=== PATIENT | male | born 1970 | race Hispanic/Latino ===

== ENCOUNTER 2017-11-16 00:10 | Emergency (ER) | payer OTHER ==
[2017-11-16] MEDS ORDERED: KETOROLAC TROMETHAMINE 60 MG/2 ML VIAL ONE (01:33)
[2017-11-16] MEDS ORDERED: DEXAMETHASONE SOD PHOSPHATE 10MG/ML 1ML VIAL ONE (01:33)
== END 2017-11-16 02:14 | disposition home or self-care (01) ==
LOC: EDH 00:10
DX: J02.9 Acute pharyngitis, unspecified (principal); I10 Essential (primary) hypertension; E11.9 Type 2 diabetes mellitus without complications; I73.9 Peripheral vascular disease, unspecified; Z79.4 Long term (current) use of insulin; Z87.891 Personal history of nicotine dependence
CPT/HCPCS: 96372 ×2; 99284; J1100; J1885

== ENCOUNTER 2018-02-08 05:09 | Emergency (ER) | payer OTHER ==
[2018-02-08] MEDS ORDERED: ONDANSETRON ODT 4 MG TAB ONE (05:40)
[2018-02-08] MEDS ORDERED: ACETAMINOPHEN-CODEINE ELIXIR 5 ML UDCUP ONE (05:41)
[2018-02-08 05:50] LABS: BASOPHILS % (AUTO) 0.5 % (0.0-5.0); EOSINOPHILS % (AUTO) 0.6 % (0.0-8.0); MEAN CORPUSCULAR HEMOGLOBIN 27.7 pg (27.0-33.0); MEAN CORPUSCULAR HGB CONC 33.7 g/dL (32.0-36.0); MEAN CORPUSCULAR VOLUME 82.2 fL (79-99); MONOCYTES % (AUTO) 10.4 % (3.0-13.0); NEUTROPHILS % (AUTO) 72.5 % (40.0-77.0); PLATELET COUNT (AUTO) 241 K/uL (130-400); RED BLOOD CELL COUNT(AUTO) 5.23 MIL/uL (4.50-6.20); RED CELL DISTRIBUTION WIDTH 12.9 % (11.0-15.5); WHITE BLOOD COUNT (AUTO) 9.9 K/uL (4.8-10.8)
[2018-02-08] MEDS ORDERED: MAG HYDROX/AL HYDROX/SIMETH ES 30 ML SUSP UDCUP ONE (05:56)
[2018-02-08] MEDS ORDERED: LIDOCAINE HCL 2% VISCOUS 15 ML UDCUP ONE (05:56)
[2018-02-08 06:02] LABS: CREATININE 0.8 mg/dL (0.5-1.5); POTASSIUM 3.9 mmol/L (3.5-5.1)
[2018-02-08 06:07] LABS: ALBUMIN 3.2 g/dL (3.5-5.0); BILIRUBIN,TOTAL 0.4 mg/dL (0.2-1.0); TOTAL PROTEIN, SERUM 8.2 g/dL (6.0-8.3)
== END 2018-02-08 06:58 | disposition home or self-care (01) ==
LOC: EDH 05:09
DX: K52.9 Noninfective gastroenteritis and colitis, unspecified (principal); E11.9 Type 2 diabetes mellitus without complications; I10 Essential (primary) hypertension; E78.5 Hyperlipidemia, unspecified; Z79.4 Long term (current) use of insulin
CPT/HCPCS: 36415; 80053; 83690; 84484; 85025; 93005

== ENCOUNTER → 2023-01-01 | Outpatient (CLI) | payer OTHER, MEDICAID | END | disposition home or self-care (01) | LOC: RAH 15:27 | PROVIDERS: ATTEND Family Medicine | DX: I45.19 Other right bundle-branch block (principal); I10 Essential (primary) hypertension | CPT/HCPCS: 93306 ==

== ENCOUNTER 2023-07-13 10:21 | Emergency (ER) | payer OTHER, MEDICAID ==
[~2023-07-13] VITALS: Ht 175.3 cm; Wt 127.0 kg
[2023-07-13 12:14] VITALS: BP 136/84; PULSE 79; RESP 18; O2SAT 97
[2023-07-13] MEDS ORDERED: DIPH,PERTUSS(ACELL),TET VAC/PF 0.5 ML VIAL IM ONE (12:30)
[2023-07-13] MEDS ORDERED: KETOROLAC 30MG VIAL (30MG/ML) IM ONE (12:30)
[2023-07-13] MEDS ORDERED: DICL20GE TP (12:32)
[2023-07-13] MEDS ORDERED: M-SA237L TP (12:33)
== END 2023-07-13 13:22 | disposition home or self-care (01) ==
LOC: EDH 10:21
DX: S80.211A Abrasion, right knee, initial encounter (principal); M25.561 Pain in right knee; E11.9 Type 2 diabetes mellitus without complications; I10 Essential (primary) hypertension; E78.00 Pure hypercholesterolemia, unspecified; Z90.49 Acquired absence of other specified parts of digestive tract; W18.39XA Other fall on same level, initial encounter; Y93.89 Activity, other specified; Y92.89 Other specified places as the place of occurrence of the external cause; Y99.8 Other external cause status
CPT/HCPCS: 99284; 82948; 90715; 73080; 73562; 96372; 90471; J1885

== ENCOUNTER → 2023-08-16 | Outpatient (CLI) | payer OTHER ==
[~2023-08-16] MED LIST: DICL20GE TP; M-SA237L TP
== END | disposition home or self-care (01) ==
LOC: RAH 12:51
PROVIDERS: ATTEND Internal Medicine Cardiovascular Disease
DX: Z13.6 Encounter for screening for cardiovascular disorders (principal)
CPT/HCPCS: 75571

== ENCOUNTER 2023-12-08 15:03 | Inpatient (IN) | payer MEDICARE ==
[~2023-12-08] VITALS: Ht 172.7 cm; Wt 117.6 kg
[2023-12-08] MEDS ORDERED: CLONIDINE HCL 0.1 MG TABLET PO PRN (15:30)
[2023-12-08] MEDS ORDERED: ACETAMINOPHEN 650 MG SUPPOSITORY RC PRN (15:30)
[2023-12-08] MEDS ORDERED: ONDANSETRON 4MG INJ IVP PRN (15:30)
[2023-12-08] MEDS ORDERED: VANCOMYCIN PROTOCOL PER PHARMACY IV SCH (15:30)
[2023-12-08] MEDS ORDERED: LACTULOSE 20 GM/30 ML UDCUP PO PRN (15:30)
[2023-12-08] MEDS ORDERED: HYDRALAZINE 20MG/ML VIAL IV PRN (15:30)
[2023-12-08] MEDS ORDERED: TEMAZEPAM 15 MG CAPSULE PO PRN (15:30)
[2023-12-08] MEDS: CEFEPIME HCL 1 GM VIAL IV SCH (16:27)
[2023-12-08] MEDS: 0.9%NACL 1000ML 1,000 ML IV SCH (16:28)
[2023-12-08] MEDS: INSULIN HUMULIN R 100 UNIT/ML 3ML SQ SCH (16:37)
[2023-12-08] MEDS: VANCOMYCIN 2GM/500 ML BAG 500 ML IV ONE (17:51)
[2023-12-08] MEDS ORDERED: POTASSIUM CHLORIDE 10% ELIXIR 20 MEQ/15 ML UDCUP PO PRN (20:00)
[2023-12-08] MEDS ORDERED: GLUCAGON 1MG KIT 1 MG ML IM PRN (20:00)
[2023-12-08] MEDS ORDERED: DEXTROSE 50%-WATER 50 ML DISP.SYRIN IV PRN (20:00)
[2023-12-08] MEDS ORDERED: POTASSIUM CHLORIDE 20MEQ/100ML 100 ML IV PRN ×2 (20:00)
[2023-12-08 20:04] LABS: BASOPHILS # (AUTO) 0.05 K/uL (0.00-0.20); BASOPHILS % (AUTO) 0.6 % (0.0-5.0); EOSINOPHILS # (AUTO) 0.11 K/uL (0.00-0.70); EOSINOPHILS % (AUTO) 1.3 % (0.0-8.0); HEMATOCRIT 40.7 % (42-54); IMMATURE GRANULOCYTE ABSOLUTE 0.04 K/uL (0-1); MEAN CORPUSCULAR HEMOGLOBIN 27.9 pg (27.0-33.0); MEAN CORPUSCULAR HGB CONC 32.7 g/dL (32.0-36.0); MEAN CORPUSCULAR VOLUME 85.5 fL (79-99); MONOCYTES # (AUTO) 0.8 K/uL (0.1-1.0); MONOCYTES % (AUTO) 9.6 % (3.0-13.0); NEUTROPHILS # (AUTO) 5.6 K/uL (1.8-7.7); PLATELET COUNT (AUTO) 184 K/uL (130-400); RED BLOOD CELL COUNT(AUTO) 4.76 MIL/uL (4.50-6.20); RED CELL DISTRIBUTION WIDTH 13.2 % (11.0-15.5); WHITE BLOOD COUNT (AUTO) 8.6 K/uL (4.8-10.8)
[2023-12-08 20:12] LABS: CREATININE 0.8 mg/dL (0.5-1.3); POTASSIUM 3.7 mmol/L (3.5-5.1)
[2023-12-08 20:16] LABS: ALBUMIN 2.9 g/dL (3.5-5.0); BILIRUBIN,TOTAL 0.2 mg/dL (0.2-1.0); TOTAL PROTEIN, SERUM 7.1 g/dL (6.0-8.3)
[2023-12-08] MEDS: TRAMADOL HCL 50 MG TABLET PO PRN (20:41)
[2023-12-08] MEDS: SIMVASTATIN 20 MG TABLET PO SCH (20:41)
[2023-12-08] MEDS: INSULIN GLARGINE 100 UNITS/ML 10 ML VIAL SQ SCH (20:42)
[2023-12-08 21:10] LABS: APPEARANCE,URINE CLEAR (CLEAR); BILIRUBIN,URINE NEGATIVE (NEGATIVE); COLOR,URINE LIGHT-YELLOW (YELLOW); GLUCOSE, URINE (UA) >=1000 mg/dL (NEGATIVE); KETONES,URINE NEGATIVE (NEGATIVE); LEUKOCYTE ESTERASE ,URINE NEGATIVE Leu/uL (NEGATIVE); NITRATE,URINE NEGATIVE (NEGATIVE); OCCULT BLOOD,URINE NEGATIVE (NEGATIVE); PH,URINE 6.5 (5.0-8.0); PROTEIN,URINE NEGATIVE (NEGATIVE); UROBILINOGEN,URINE 0.2 mg/dL (0.2-1.0)
[2023-12-08 21:11] LABS: ADD UA MICROSCOPIC YES
[2023-12-08 21:15] LABS: BACTERIA,URINE RARE /HPF (None Seen); MUCUS,URINE RARE LPF (None Seen); RBC,URINE 0-1 /HPF (0-1); SQUAMOUS EPITHELIAL CELL,UR RARE /HPF (0-2)
[2023-12-08 22:06] VITALS: BP 154/79; PULSE 75; RESP 19
[2023-12-09] VITALS (27 sets, daily range): BP systolic 116–157; BP diastolic 65–97; PULSE 64–85; RESP 16–22; O2SAT 98
[2023-12-09] MEDS: VANCOMYCIN 1G/250ML KIT 250 ML IV ONE (04:29)
[2023-12-09] MEDS: VANCOMYCIN 500MG+NS 100ML 100 ML IV ONE (04:29)
[2023-12-09] MEDS: VANCOMYCIN 1.5 GM/250 ML BAG 250 ML IV SCH (04:30)
[2023-12-09 04:32] LABS: BASOPHILS # (AUTO) 0.06 K/uL (0.00-0.20); BASOPHILS % (AUTO) 0.8 % (0.0-5.0); EOSINOPHILS # (AUTO) 0.14 K/uL (0.00-0.70); EOSINOPHILS % (AUTO) 1.8 % (0.0-8.0); HEMATOCRIT 40.8 % (42-54); IMMATURE GRANULOCYTE ABSOLUTE 0.03 K/uL (0-1); LYMPHOCYTES # (AUTO) 2.2 K/uL (1.0-4.8); LYMPHOCYTES % (AUTO) 28.3 % (21.0-51.0); MEAN CORPUSCULAR HEMOGLOBIN 27.9 pg (27.0-33.0); MEAN CORPUSCULAR HGB CONC 31.9 g/dL (32.0-36.0); MEAN CORPUSCULAR VOLUME 87.6 fL (79-99); MONOCYTES # (AUTO) 0.8 K/uL (0.1-1.0); MONOCYTES % (AUTO) 10.9 % (3.0-13.0); NEUTROPHILS # (AUTO) 4.4 K/uL (1.8-7.7); NEUTROPHILS % (AUTO) 57.8 % (40.0-77.0); PLATELET COUNT (AUTO) 179 K/uL (130-400); RED BLOOD CELL COUNT(AUTO) 4.66 MIL/uL (4.50-6.20); RED CELL DISTRIBUTION WIDTH 13.2 % (11.0-15.5); WHITE BLOOD COUNT (AUTO) 7.7 K/uL (4.8-10.8)
[2023-12-09 04:49] LABS: INR <= 0.93 (0.85-1.15); PROTHROMBIN TIME 10.4 SEC (9.6-11.6)
[2023-12-09 04:50] LABS: PARTIAL THROMBOPLASTIN TIME 31.8 SEC (26.3-35.5)
[2023-12-09 04:54] LABS: CREATININE 0.6 mg/dL (0.5-1.3); MAGNESIUM 1.7 mg/dL (1.80-2.40); PHOSPHORUS 3.3 mg/dL (2.5-4.9); POTASSIUM 3.6 mmol/L (3.5-5.1)
[2023-12-09 04:57] LABS: HEMOGLOBIN A1C 11.7 % (4.0-6.0)
[2023-12-09] MEDS: MAGNESIUM 2GM PREMIX 50ML 50 ML IV PRN (05:16)
[2023-12-09] MEDS ORDERED: MIDAZOLAM HCL 1 MG/ML 2ML VIAL ONE (06:59)
[2023-12-09] MEDS ORDERED: FENTANYL CITRATE PF 50 MCG/1 ML 2ML VIAL ONE (07:00)
[2023-12-09] MEDS ORDERED: PROPOFOL 10 MG/ML 20ML VIAL IV ONE (07:00)
[2023-12-09] MEDS: LIDOCAINE HCL 1% 20 ML VIAL ONE (07:30)
[2023-12-09] MEDS: BUPIVACAINE/PF 0.5% 30ML VIAL ONE (07:30)
[2023-12-09] MEDS ORDERED: ONDANSETRON 4MG INJ ONE (07:43)
[2023-12-09] MEDS: 0.9%NACL 1000ML 1,000 ML IV ONE (07:58)
[2023-12-09] MEDS: POLYETHYLENE GLYCOL 3350 17 GM POWD.PACK PO SCH (09:00)
[2023-12-09] MEDS: ASCORBIC ACID 500 MG TAB PO SCH (10:43)
[2023-12-09] MEDS: PANTOPRAZOLE 40 MG TAB DR PO SCH (10:43)
[2023-12-09] MEDS: LISINOPRIL 10 MG TABLET PO SCH (10:43)
[2023-12-09] MEDS: ASPIRIN 81MG CHEW TAB PO SCH (10:44)
[2023-12-09] MEDS: ENOXAPARIN SODIUM 40 MG/0.4 ML SYRINGE SQ SCH (10:44)
[2023-12-09] MEDS ORDERED: PHARMACY COMMUNICATION MISC SCH (18:30)
[2023-12-09] MEDS: KCL 20 MEQ ERTAB PO PRN (20:14)
[2023-12-09] MEDS: VANCOMYCIN 1.75 GM/250 ML BAG 250 ML IV SCH (20:15)
[2023-12-09] MEDS ORDERED: METF-446 PO (20:28)
[2023-12-09] MEDS ORDERED: AEC81 PO (20:28)
[2023-12-09] MEDS ORDERED: EMPA25TA PO (20:28)
[2023-12-09] MEDS ORDERED: TRAM50TA4 PO (20:28)
[2023-12-09] MEDS ORDERED: ATOR10 PO (20:28)
[2023-12-09] MEDS ORDERED: GABA600T PO (20:28)
[2023-12-09] MEDS ORDERED: CARV12.511 PO (20:28)
[2023-12-09] MEDS ORDERED: INSU100V3 IJ (20:32)
[2023-12-09] MEDS ORDERED: INSU100I35 SQ (20:32)
[2023-12-09] MEDS ORDERED: GLIP10TA9 PO (21:02)
[2023-12-10] VITALS (8 sets, daily range): BP systolic 133–153; BP diastolic 75–93; PULSE 75–87; RESP 16–20; O2SAT 98
[2023-12-10 05:16] LABS: HEMATOCRIT 40.7 % (42-54); MEAN CORPUSCULAR HEMOGLOBIN 28.1 pg (27.0-33.0); MEAN CORPUSCULAR HGB CONC 32.2 g/dL (32.0-36.0); MEAN CORPUSCULAR VOLUME 87.2 fL (79-99); RED BLOOD CELL COUNT(AUTO) 4.67 MIL/uL (4.50-6.20); WHITE BLOOD COUNT (AUTO) 9.8 K/uL (4.8-10.8)
[2023-12-10 05:50] LABS: CREATININE 0.6 mg/dL (0.5-1.3); MAGNESIUM 1.8 mg/dL (1.80-2.40); PHOSPHORUS 3.1 mg/dL (2.5-4.9); POTASSIUM 3.9 mmol/L (3.5-5.1)
[2023-12-11 03:03] VITALS: BP 139/78; PULSE 87; RESP 20
[2023-12-11] MEDS: CEFEPIME HCL 1 GM VIAL IV SCH (06:22)
[2023-12-11 06:38] LABS: HEMATOCRIT 42.4 % (42-54); MEAN CORPUSCULAR HEMOGLOBIN 27.6 pg (27.0-33.0); MEAN CORPUSCULAR HGB CONC 32.5 g/dL (32.0-36.0); MEAN CORPUSCULAR VOLUME 84.8 fL (79-99); RED CELL DISTRIBUTION WIDTH 13.1 % (11.0-15.5); WHITE BLOOD COUNT (AUTO) 8.7 K/uL (4.8-10.8)
[2023-12-11 07:06] LABS: CREATININE 0.5 mg/dL (0.5-1.3); MAGNESIUM 1.8 mg/dL (1.80-2.40); PHOSPHORUS 4.5 mg/dL (2.5-4.9); POTASSIUM 3.8 mmol/L (3.5-5.1); VANCOMYCIN TROUGH 10.8 UG/ML (10.0-20.0)
[2023-12-11 08:00] VITALS: BP 139/86; PULSE 74; RESP 16; O2SAT 98
[2023-12-11 12:00] VITALS: BP 147/87; PULSE 80; RESP 16
[2023-12-11 12:53] LABS: CREATININE 0.6 mg/dL (0.5-1.3); POTASSIUM 3.9 mmol/L (3.5-5.1)
[2023-12-11 16:00] VITALS: BP 150/91; PULSE 74; RESP 16
[2023-12-11 19:23] VITALS: O2SAT 98
[2023-12-11 20:00] VITALS: BP 159/76; PULSE 87; RESP 16
[2023-12-12] VITALS (8 sets, daily range): BP systolic 130–143; BP diastolic 70–87; PULSE 74–91; RESP 16–20; O2SAT 100
[2023-12-12 04:28] LABS: HEMATOCRIT 44.8 % (42-54); MEAN CORPUSCULAR HEMOGLOBIN 27.6 pg (27.0-33.0); MEAN CORPUSCULAR HGB CONC 32.1 g/dL (32.0-36.0); RED BLOOD CELL COUNT(AUTO) 5.21 MIL/uL (4.50-6.20); RED CELL DISTRIBUTION WIDTH 12.9 % (11.0-15.5); WHITE BLOOD COUNT (AUTO) 8.7 K/uL (4.8-10.8)
[2023-12-12 04:45] LABS: CREATININE 0.6 mg/dL (0.5-1.3); MAGNESIUM 1.6 mg/dL (1.80-2.40); PHOSPHORUS 3.3 mg/dL (2.5-4.9); POTASSIUM 3.7 mmol/L (3.5-5.1)
[2023-12-13] VITALS (7 sets, daily range): BP systolic 117–155; BP diastolic 62–79; PULSE 69–97; RESP 16–20; O2SAT 97–98
[2023-12-13 04:31] LABS: HEMATOCRIT 41.8 % (42-54); MEAN CORPUSCULAR HEMOGLOBIN 27.8 pg (27.0-33.0); MEAN CORPUSCULAR VOLUME 84.1 fL (79-99); RED BLOOD CELL COUNT(AUTO) 4.97 MIL/uL (4.50-6.20); WHITE BLOOD COUNT (AUTO) 7.8 K/uL (4.8-10.8)
[2023-12-13 04:53] LABS: CREATININE 0.6 mg/dL (0.5-1.3); POTASSIUM 3.6 mmol/L (3.5-5.1)
[2023-12-13 13:58] LABS: INR <= 0.93 (0.85-1.15); PROTHROMBIN TIME 10.9 SEC (9.6-11.6)
[2023-12-13 14:00] LABS: PARTIAL THROMBOPLASTIN TIME 31.7 SEC (26.3-35.5)
[2023-12-13] MEDS: ZOSYN 3.375GM +NS 50ML IV SCH (14:37)
[2023-12-13] MEDS: METRONIDAZOLE 500 MG TABLET PO SCH (14:37)
[2023-12-13] MEDS: TETANUS/DIPHTHERIA TOXOID [ADULT] 0.5 ML VIAL IM ONE (17:00)
[2023-12-14] VITALS (8 sets, daily range): BP systolic 126–156; BP diastolic 57–91; PULSE 70–90; RESP 16–24; O2SAT 99
[2023-12-14] MEDS: ACETAMINOPHEN 325 MG TAB PO PRN (10:01)
[2023-12-15] VITALS: BP 142/86; PULSE 83; RESP 14
[2023-12-15 04:05] VITALS: BP 122/59; PULSE 85; RESP 18
[2023-12-15 05:28] LABS: BASOPHILS # (AUTO) 0.04 K/uL (0.00-0.20); BASOPHILS % (AUTO) 0.5 % (0.0-5.0); EOSINOPHILS # (AUTO) 0.14 K/uL (0.00-0.70); EOSINOPHILS % (AUTO) 1.6 % (0.0-8.0); HEMATOCRIT 40.7 % (42-54); IMMATURE GRANULOCYTE ABSOLUTE 0.04 K/uL (0-1); LYMPHOCYTES # (AUTO) 2.1 K/uL (1.0-4.8); LYMPHOCYTES % (AUTO) 24.8 % (21.0-51.0); MEAN CORPUSCULAR HGB CONC 32.4 g/dL (32.0-36.0); MEAN CORPUSCULAR VOLUME 86.4 fL (79-99); MONOCYTES % (AUTO) 11.9 % (3.0-13.0); NEUTROPHILS # (AUTO) 5.2 K/uL (1.8-7.7); NEUTROPHILS % (AUTO) 60.7 % (40.0-77.0); PLATELET COUNT (AUTO) 238 K/uL (130-400); RED BLOOD CELL COUNT(AUTO) 4.71 MIL/uL (4.50-6.20); WHITE BLOOD COUNT (AUTO) 8.5 K/uL (4.8-10.8)
[2023-12-15 05:34] LABS: ALBUMIN 2.8 g/dL (3.5-5.0); BILIRUBIN,TOTAL 0.5 mg/dL (0.2-1.0); CREATININE 0.7 mg/dL (0.5-1.3); POTASSIUM 3.8 mmol/L (3.5-5.1); TOTAL PROTEIN, SERUM 7.3 g/dL (6.0-8.3)
[2023-12-15 08:00] VITALS: BP 141/95; PULSE 102; RESP 19
[2023-12-15 08:15] VITALS: O2SAT 99
[2023-12-15 11:00] VITALS: BP 176/77; PULSE 100; RESP 18
== END 2023-12-15 18:50 | disposition home or self-care (01) | DRG 629 ==
LOC: EDH 15:03 → EDHIP 15:26 → 4BH 18:06
PROVIDERS: ADMIT Internal Medicine; ATTEND Internal Medicine
PROC: 0QBN0ZZ Excision of Right Metatarsal, Open Approach (ICD-10-PCS; principal; 2023-12-09 07:28)
PROC: 02HV33Z Insertion of Infusion Device into Superior Vena Cava, Percutaneous Approach (ICD-10-PCS; 2023-12-13)
PROC: B548ZZA Ultrasonography of Superior Vena Cava, Guidance (ICD-10-PCS; 2023-12-13)
DX: E11.69 Type 2 diabetes mellitus with other specified complication (principal); L03.115 Cellulitis of right lower limb; M86.8X7 Other osteomyelitis, ankle and foot; M00.871 Arthritis due to other bacteria, right ankle and foot; E11.51 Type 2 diabetes mellitus with diabetic peripheral angiopathy without gangrene; E11.621 Type 2 diabetes mellitus with foot ulcer; L97.519 Non-pressure chronic ulcer of other part of right foot with unspecified severity; E11.628 Type 2 diabetes mellitus with other skin complications; E11.65 Type 2 diabetes mellitus with hyperglycemia; E66.01 Morbid (severe) obesity due to excess calories; G47.33 Obstructive sleep apnea (adult) (pediatric); B95.2 Enterococcus as the cause of diseases classified elsewhere; E78.5 Hyperlipidemia, unspecified; I10 Essential (primary) hypertension; Z79.4 Long term (current) use of insulin; Z79.899 Other long term (current) drug therapy; Z83.3 Family history of diabetes mellitus; Z90.49 Acquired absence of other specified parts of digestive tract; Z68.39 Body mass index [BMI] 39.0-39.9, adult
CPT/HCPCS: 36415; 71045; 73630; 73718; 80048; 80053; 80061; 80202; 81001; 82948; 83036; 83735; 84100; 84145; 85025; 85027; 85610; 85651; 85730; 86140; 87040; 87070; 87076; 87077; 87186; 87205; 88305; 88311; 90714; 93005; 93926; A6266; G0378; J0692; J1650; J1815; J2250; J2405; J2543; J2704; J3010; J3370; J3475; J7030; A4216; A4222; A4223; A4649; A4930; J0665; J3490

== ENCOUNTER → 2023-12-29 | Outpatient (CLI) | payer MEDICARE ==
[~2023-12-29] MED LIST changes: +AEC81 PO; +ATOR10 PO; +CARV12.511 PO; -DICL20GE TP; +EMPA25TA PO; +GABA600T PO; +GLIP10TA9 PO; +INSU100I35 SQ; +INSU100V3 IJ; +LIDOCAINE HCL 4% LTA SOL 4 ML VIAL TP ONE; -M-SA237L TP; +METF-446 PO; +TRAM50TA4 PO
== END | disposition home or self-care (01) ==
LOC: WHH 08:40
PROVIDERS: ATTEND Podiatrist Foot & Ankle Surgery
DX: E11.621 Type 2 diabetes mellitus with foot ulcer (principal); L97.512 Non-pressure chronic ulcer of other part of right foot with fat layer exposed; E78.5 Hyperlipidemia, unspecified; E11.51 Type 2 diabetes mellitus with diabetic peripheral angiopathy without gangrene; G47.33 Obstructive sleep apnea (adult) (pediatric); E11.69 Type 2 diabetes mellitus with other specified complication; M86.8X7 Other osteomyelitis, ankle and foot; E11.65 Type 2 diabetes mellitus with hyperglycemia; E66.01 Morbid (severe) obesity due to excess calories; Z68.41 Body mass index [BMI] 40.0-44.9, adult; Z90.49 Acquired absence of other specified parts of digestive tract; Z79.4 Long term (current) use of insulin; Z79.899 Other long term (current) drug therapy
CPT/HCPCS: G0463; A6250; A6209; A4450; A6260

== ENCOUNTER → 2024-01-05 | Outpatient (CLI) | payer MEDICARE | END | disposition home or self-care (01) | LOC: WHH 08:21 | PROVIDERS: ATTEND Podiatrist Foot & Ankle Surgery | DX: E11.621 Type 2 diabetes mellitus with foot ulcer (principal); L97.512 Non-pressure chronic ulcer of other part of right foot with fat layer exposed; E78.5 Hyperlipidemia, unspecified; E11.51 Type 2 diabetes mellitus with diabetic peripheral angiopathy without gangrene; G47.33 Obstructive sleep apnea (adult) (pediatric); E11.69 Type 2 diabetes mellitus with other specified complication; M86.8X7 Other osteomyelitis, ankle and foot; E11.65 Type 2 diabetes mellitus with hyperglycemia; E66.01 Morbid (severe) obesity due to excess calories; Z68.41 Body mass index [BMI] 40.0-44.9, adult; Z90.49 Acquired absence of other specified parts of digestive tract; Z79.4 Long term (current) use of insulin; Z79.899 Other long term (current) drug therapy | CPT/HCPCS: G0463; A6209; A6260 ==

== ENCOUNTER → 2024-01-19 | Outpatient (CLI) | payer MEDICARE | END | disposition home or self-care (01) | LOC: WHH 08:10 | PROVIDERS: ATTEND Podiatrist Foot & Ankle Surgery | DX: T87.89 Other complications of amputation stump (principal); S91.311A Laceration without foreign body, right foot, initial encounter; E11.621 Type 2 diabetes mellitus with foot ulcer; L97.512 Non-pressure chronic ulcer of other part of right foot with fat layer exposed; E11.51 Type 2 diabetes mellitus with diabetic peripheral angiopathy without gangrene; E11.69 Type 2 diabetes mellitus with other specified complication; M86.8X7 Other osteomyelitis, ankle and foot; E11.65 Type 2 diabetes mellitus with hyperglycemia; I10 Essential (primary) hypertension; E78.5 Hyperlipidemia, unspecified; E66.01 Morbid (severe) obesity due to excess calories; G47.33 Obstructive sleep apnea (adult) (pediatric); Z68.41 Body mass index [BMI] 40.0-44.9, adult; Z90.49 Acquired absence of other specified parts of digestive tract; Z79.4 Long term (current) use of insulin; Z79.899 Other long term (current) drug therapy; X58.XXXA Exposure to other specified factors, initial encounter; Y93.89 Activity, other specified; Y92.89 Other specified places as the place of occurrence of the external cause; Y99.8 Other external cause status; Y83.5 Amputation of limb(s) as the cause of abnormal reaction of the patient, or of later complication, without mention of misadventure at the time of the procedure | CPT/HCPCS: G0463; A6209 ==